=== PATIENT | male | born 1995 | race Caucasian/White ===

== ENCOUNTER 2018-04-27 12:00 | Inpatient (IN) | payer OTHER ==
[2018-04-27 13:03] LABS: AMPHETAMINES LEVEL URINE NEGATIVE (NEGATIVE); BARBITURATES URINE NEGATIVE (NEGATIVE); BENZODIAZEPINES URINE NEGATIVE (NEGATIVE); CANNABINOIDS URINE NEGATIVE (NEGATIVE); COCAINE METABOLITE URINE NEGATIVE (NEGATIVE); METHADONE URINE NEGATIVE (NEGATIVE); OPIATES URINE NEGATIVE (NEGATIVE); PHENCYCLIDINE URINE NEGATIVE (NEGATIVE)
[2018-04-27 13:09] LABS: HEMATOCRIT 44.1 % (42.0-52.0); HEMOGLOBIN 14.8 g/dl (13.5-17.5); MEAN CORPUSCULAR HEMOGLOBIN 28.1 pg (27.0-33.0); MEAN CORPUSCULAR HGB CONC 33.6 g/dl (32.0-36.5); MEAN CORPUSCULAR VOLUME 83.7 fl (80.0-96.0); PLATELET COUNT, AUTOMATED 353 10^3/uL (150-450); RED BLOOD COUNT 5.27 10^6/uL (4.30-6.10); RED CELL DISTRIBUTION WIDTH 12.2 % (11.5-14.5); WHITE BLOOD COUNT 7.6 10^3/uL (4.0-10.0)
[2018-04-27 13:48] LABS: ACETAMINOPHEN LEVEL < 2.0 UG/ML (10.0-30.0); ALBUMIN 4.1 GM/DL (3.2-5.2); ALBUMIN/GLOBULIN RATIO 1.28 (1.00-1.93); ALKALINE PHOSPHATASE 95 U/L (45-117); ALT/SGPT 18 U/L (12-78); ANION GAP 6 MEQ/L (8-16); AST/SGOT 18 U/L (7-37); BILIRUBIN,DIRECT 0.2 MG/DL (0.0-0.2); BILIRUBIN,TOTAL 0.6 MG/DL (0.2-1.0); BLOOD UREA NITROGEN 12 MG/DL (7-18); CALCIUM LEVEL 8.7 MG/DL (8.5-10.1); CARBON DIOXIDE LEVEL 29 MEQ/L (21-32); CHLORIDE LEVEL 106 MEQ/L (98-107); CPK CREATINE PHOSPHOKINASE 159 U/L (39-308); CREATININE FOR GFR 1.08 MG/DL (0.70-1.30); ETHYL ALCOHOL (ETHANOL) < 0.003 % (0.000-0.010); GLOMERULAR FILTRATION RATE > 60.0 (>60); GLUCOSE, FASTING 84 MG/DL (70-100); POTASSIUM SERUM 4.7 MEQ/L (3.5-5.1); SALICYLATE LEVEL < 1.7 MG/DL (5.0-30.0); SODIUM LEVEL 141 MEQ/L (136-145); THYROID STIMULATING HORMONE 0.841 uIU/ML (0.358-3.740); TOTAL PROTEIN 7.3 GM/DL (6.4-8.2)
[2018-04-27] MEDS ORDERED: traZODone 50 MG TAB PO (15:30)
[2018-04-27] MEDS ORDERED: MAALOX 30 ML SUSP *UDC PO (15:30)
[2018-04-27] MEDS ORDERED: ACETAMINOPHEN TAB 650MG DOSE (2X325MG) PO (15:30)
[2018-04-27] MEDS ORDERED: MOM 30ML SUSPENSION UDC PO (15:30)
[2018-04-28] MEDS: buPROPion **XL** TABLET 150MG (WELLBUTRIN XL) PO (16:29)
[2018-04-29] MEDS: buPROPion **XL** TABLET 150MG (WELLBUTRIN XL) PO (09:33)
[2018-04-30] MEDS: buPROPion **XL** TABLET 150MG (WELLBUTRIN XL) PO (09:20)
[2018-05-01] MEDS: buPROPion **XL** TABLET 150MG (WELLBUTRIN XL) PO (09:45)
== END 2018-05-01 10:40 | disposition home or self-care (01) | DRG 881 ==
LOC: M ED 12:00 → M ED INP 15:18 → M PSY 16:55
DX: F32.9 Major depressive disorder, single episode, unspecified (principal); R45.851 Suicidal ideations

== ENCOUNTER 2019-03-05 19:40 | Emergency (ER) | payer OTHER ==
[~2019-03-05] VITALS: Ht 182.9 cm; Wt 88.6 kg
[2019-03-05 19:40] VITALS: BP 140/70
[~2019-03-05 19:40] MED LIST: BUPR150T3 PO; TRAZ1TAB10 PO
[2019-03-05] MEDS ORDERED: PHENAZOPYRIDINE 100 MG TAB PO ONE (21:00)
[2019-03-05] MEDS ORDERED: CIPROFLOXACIN 500 MG TAB PO ONE (21:00)
[2019-03-05] MEDS ORDERED: PYRI1TAB5 PO (21:04)
[2019-03-05] MEDS ORDERED: BACT800T5 PO (21:04)
[2019-03-05] MEDS ORDERED: BACTRIM 160MG/800MG DS TAB PO ONE (21:15)
[2019-03-05 22:14] LABS: CHLAMYDIA DNA AMPLIFICATION NEGATIVE (NEGATIVE); GC DNA AMPLIFICATION POSITIVE (NEGATIVE)
== END 2019-03-05 21:35 | disposition home or self-care (01) ==
LOC: M ED 19:40
DX: N39.0 Urinary tract infection, site not specified (principal)

== ENCOUNTER 2019-03-06 10:59 | Emergency (ER) | payer OTHER ==
[~2019-03-06] VITALS: Ht 182.9 cm; Wt 92.1 kg
[~2019-03-06 10:59] MED LIST changes: +BACT800T5 PO; +PYRI1TAB5 PO
[2019-03-06] MEDS ORDERED: cefTRIAXone SOD 250 MG VIAL (J0696) IM ONE (12:45)
[2019-03-06] MEDS ORDERED: AZITHROMYCIN 250 MG TAB PO ONE (12:45)
[2019-03-06] MEDS ORDERED: LIDOCAINE 1% SDV 5 ML VIAL DILUENT ONE (12:45)
[2019-03-06 13:20] VITALS: BP 119/67
== END 2019-03-06 13:21 | disposition home or self-care (01) ==
LOC: M ED 10:59
DX: A54.01 Gonococcal cystitis and urethritis, unspecified (principal)
CPT/HCPCS: 96372; 99283; J0696

== ENCOUNTER 2020-05-31 14:21 | Emergency (ER) | payer OTHER ==
[~2020-05-31] VITALS: Ht 180.3 cm; Wt 89.5 kg
[2020-05-31 14:23] VITALS: BP 125/62
[2020-05-31] MEDS ORDERED: BACITRACIN OINTMENT 30GM TUBE TOP ONE (15:30)
== END 2020-05-31 15:32 | disposition home or self-care (01) ==
LOC: M ED 14:21
DX: S90.414A Abrasion, right lesser toe(s), initial encounter (principal); W26.8XXA Contact with other sharp object(s), not elsewhere classified, initial encounter; Y92.9 Unspecified place or not applicable; Y93.89 Activity, other specified; Y99.9 Unspecified external cause status

== ENCOUNTER 2022-04-26 17:36 | Emergency (ER) | payer OTHER ==
[~2022-04-26] VITALS: Ht 182.9 cm; Wt 97.7 kg
[2022-04-26 17:36] VITALS: BP 126/69
[~2022-04-26 17:36] MED LIST changes: +BUPR150T12 PO; -BUPR150T3 PO
== END 2022-04-26 22:07 | disposition left against medical advice (07) ==
LOC: M ED 17:36
DX: Z53.21 Procedure and treatment not carried out due to patient leaving prior to being seen by health care provider (principal)